=== PATIENT | male | born 2000 | race African-American/Black ===

== ENCOUNTER → 2023-08-07 | Emergency (ER) | payer OTHER ==
[~2023-08-07] MED LIST: AZITHROMYCIN 1 GM PACKET ONE; CEFTRIAXONE 1000 MG/VIAL ONE; KETOROLAC 30 MG/ML INJ ONE; NA CHLORIDE 0.9% 1,000 ML ONE
--- NOTE | 2023-08-07 11:01 | RAD REPORT ---
EXAM DESCRIPTION: CT - Stone Protocol - 08/07/2023 10:46 am CLINICAL HISTORY: Abdominal pain. COMPARISON: None. TECHNIQUE: Computed axial tomography of the abdomen pelvis was obtained without oral or IV contrast. Lack of IV and oral contrast limits evaluation of solid organs, appendix, bowel, and vessels. Romo l reformatted images were obtained and reviewed. All CT scans are performed using dose optimization technique as appropriate and may include automated exposure control or mA/KV adjustment according to patient size. FINDINGS: A renal calculus is not seen. An ureteral calculus is not noted. A bladder calculus is not present. No hydronephrosis Several images are degraded by artifact. The liver, spleen, pancreas and adrenals appear grossly normal There is no evidence of diverticulitis. IMPRESSION: Negative for a genitourinary calculus
[2023-08-07 11:34] LABS: Absolute Lymphocytes (CBC) 2.5 K/uL (0.7-4.9); Lymphocytes % 35.3 % (15.3-44.8); MCV 88.4 fL (80-100); Platelets 330 thou/uL (152-406); RBC Red Blood Cell Count 4.97 M/uL (4.33-5.43)
[2023-08-07 11:46] LABS: Specific Gravity 1.017 (1.005-1.030); Urine Bilirubin NEGATIVE (Negative); Urine Blood Negative (Negative); Urine Clarity Clear (Clear); Urine Color Light-Yellow (Yellow); Urine Glucose NEGATIVE (Negative); Urine Protein NEGATIVE (Negative); Urine Urobilinogen Normal (Normal); Urine pH 6.5 (5.0-7.0)
[2023-08-07 11:51] LABS: Albumin 4.1 g/dL (3.4-5.0); Bilirubin Total 0.6 mg/dL (0.2-1.0); Potassium 3.8 mEq/L (3.5-5.1); Protein, Total 8.3 g/dL (6.4-8.2)
--- NOTE | 2023-08-07 11:54 | RAD REPORT ---
EXAM DESCRIPTION: US - Scrotum Testicles - 08/07/2023 11:32 am CLINICAL HISTORY: Testicular pain COMPARISON: None FINDINGS: Right testicle measures 3.7 x 2.2 x 2.2 centimeters. Echotexture is homogeneous. Normal bl ood flow Left testicle measures 3 x 1.7 x 2 centimeters. Echotexture is homogeneous. Normal blood flow The epididymides are normal in size and echotexture. Normal blood flow is seen. IMPRESSION: No significant abnormalities displayed
--- NOTE | 2023-08-07 11:56 | ER ---
Nurse's Notes [facility] Name: Brenden Ratliff Age: 22 yrs Sex: Male : 2000 Arrival Date: 08/07/2023 Time: 10:22 Bed 15 Private MD: Diagnosis: Abdominal pain, unspecified-left testicular pain Presentation: 08/07 10:25 Chief complaint: Patient states: Pain in scrotum that started this morning. Coronavirus rs5 screen: At this time, the client does not indicate any symptoms associated with coronavirus-19. Ebola Screen: No symptoms or risks identified at this time. Initial Sepsis Screen: Does the patient meet any 2 criteria? No. Patient's initial sepsis screen is negative. Does the patient have a suspected source of infection? No. Patient's initial sepsis screen is negative. Risk Assessment: Do you want to hurt yourself or someone else? Patient reports no desire to harm self or others. Onset of symptoms was August 07, 2023. 10:25 Method Of Arrival: Law Enforcement: [place] [employer] rs5 10:25 Acuity: HERB 3 rs5 Historical: - Allergies: 10:27 No Known Allergies; rs5 - PMHx: 10:27 None; rs5 - PSHx: 10:27 None; rs5 - Immunization history:: Adult Immunizations up to date. - Social history:: Smoking status: Patient denies any tobacco usage or history of. Screenin:30 [facility] ED Fall Risk Assessment (Adult) History of falling in the last 3 months, rs5 including since admission No falls in past 3 months (0 pts) Confusion or Disorientation No (0 pts) Intoxicated or Sedated No (0 pts) Impaired Gait No (0 pts) Mobility Assist Device Used No (0 pt) Altered Elimination No (0 pt) Score/Fall Risk Level 0 - 2 = Low Risk Oriented to surroundings, Maintained a safe environment. Abuse screen: Denies threats or abuse. Nutritional screening: No deficits noted. Tuberculosis screening: No symptoms or risk factors identified. Assessment: 10:27 General: Appears in no apparent distress. comfortable, Behavior is calm, cooperative. rs5 Pain: Complains of pain in scrotumn Pain does not radiate. Pain currently is 5 out of 10 on a pain scale. Quality of pain is described as aching, Is continuous. Neuro: Level of Consciousness is awake, alert, obeys commands, Oriented to person, place, time, situation. Cardiovascular: Patient's skin is warm and dry. Rhythm is regular. Respiratory: Respiratory effort is even, unlabored, Respiratory pattern is regular, symmetrical. GI: Abdomen is round non-distended, Abd is soft and non tender X 4 quads. : Reports Scrotal pain: sudden onset no redness or swelling noted. EENT: No signs and/or symptoms were reported regarding the EENT system. Derm: Skin is intact, Skin is dry, Skin is normal, Skin temperature is warm. Musculoskeletal: Range of motion: intact in all extremities. 10:35 Reassessment: pt taken for CT scan. rs5 11:41 Reassessment: Patient and/or family updated on plan of care and expected duration. Pain rs5 level reassessed. Patient is alert, oriented x 3, equal unlabored respirations, skin warm/dry/pink. Patient denies pain at this time. Patient states feeling better. Patient states symptoms have improved. Vital Signs: 10:25 BP 135 / 82; Pulse 75; Resp 17; Temp 97.8; Pulse Ox 99% on R/A; rs5 12:01 BP 130 / 79; Pulse 77; Resp 18; Pulse Ox 99% on R/A; rs5 ED Course: 10:25 Patient arrived in ED. rs5 10:25 Jose Bucio MD is Attending Physician. cy 10:27 Triage completed. rs5 10:30 Bennett Goldstein, RN is Primary Nurse. rs5 10:30 Patient has correct armband on for positive identification. Bed in low position. Call rs5 light in reach. Side rails up X2. 10:30 No provider procedures requiring assistance completed. rs5 10:48 CT Stone Protocol In Process Unspecified. EDMS 11:33 US Scrotum Testicles In Process Unspecified. EDMS 11:55 Aston Vogel MD is Referral Physician. cy 12:10 IV discontinued, intact, bleeding controlled, No redness/swelling at site. Pressure rs5 dressing applied. Administered Medications: 10:35 Drug: Ketorolac IVP 30 mg IVP once Route: IVP; Site: left hand; rs5 11:01 Follow up: Response: No adverse reaction; Pain is decreased rs5 11:29 Drug: NS 0.9% IV 1000 ml IV at 1 bolus Per protocol; 1000 mL bolus Route: IV; Rate: 1 rs5 bolus; Site: left hand; 12:07 Follow up: Response: No adverse reaction rs5 11:29 Not Given (Patient Refused): fentanyl (pf)50 mcg IVP once rs5 11:29 Not Given (Patient Refused): ondansetron 4 mg IVP once; over 2 minutes rs5 11:50 Drug: AZITHromycin PO 1 grams PO once Route: PO; rs5 12:07 Follow up: Response: No adverse reaction rs5 11:50 Drug: Rocephin IV 1 grams IV at per protocol once; Given slow IV push per pharmacy rs5 instructions Route: IV; Rate: per protocol; Site: left hand; 12:07 Follow up: Response: No adverse reaction rs5 Medication: 10:35 VIS not applicable for this client. rs5 Outcome: 11:55 Discharge ordered by . cy 12:10 Discharged to home ambulatory, rs5 12:10 Condition: stable 12:10 Discharge instructions given to patient, Instructed on discharge instructions, follow up and referral plans. medication usage, Demonstrated understanding of instructions, follow-up care, medications, Prescriptions given X 2, 12:18 Patient left the ED. rs5 Signatures: Dispatcher [employer] EDJose Spaulding MD MD cha Sotelo, Ricky, RN RN rs5
--- NOTE | 2023-08-07 11:57 | EDPHYS ---
Physician Documentation [facility] Name: Brenden Ratliff Age: 22 yrs Sex: Male : 2000 Arrival Date: 08/07/2023 Time: 10:22 Bed 15 Private MD: ED Physician Jose Bucio HPI: 08/07 11:44 This 22 yrs old Black Male presents to ER via Law Enforcement with complaints of left cy testicle pain, left flank pain. Historical: - Allergies: 10: No Known Allergies; rs5 - PMHx: 10: None; rs5 - PSHx: 10: None; rs5 - Immunization history:: Adult Immunizations up to date. - Social history:: Smoking status: Patient denies any tobacco usage or history of. ROS: 11:45 Constitutional: Negative for fever, chills, and weight loss, Eyes: Negative for injury, cy pain, redness, and discharge, ENT: Negative for injury, pain, and discharge, Neck: Negative for injury, pain, and swelling, Cardiovascular: Negative for chest pain, palpitations, and edema, Respiratory: Negative for shortness of breath, cough, wheezing, and pleuritic chest pain, Abdomen/GI: Negative for abdominal pain, nausea, vomiting, diarrhea, and constipation, Back: Negative for injury and pain, MS/Extremity: Negative for injury and deformity, Skin: Negative for injury, rash, and discoloration, Neuro: Negative for headache, weakness, numbness, tingling, and seizure, Psych: Negative for depression, anxiety, suicide ideation, homicidal ideation, and hallucinations, Allergy/Immunology: Negative for hives, rash, and allergies, Endocrine: Negative for neck swelling, polydipsia, polyuria, polyphagia, and marked weight changes, Hematologic/Lymphatic: Negative for swollen nodes, abnormal bleeding, and unusual bruising, 11:45 : Positive for testicular pain of the left testicle, Exam: 11:45 Constitutional: This is a well developed, well nourished patient who is awake, alert, cy and in no acute distress. Head/Face: Normocephalic, atraumatic. Eyes: Pupils equal round and reactive to light, extra-ocular motions intact. Lids and lashes normal. Conjunctiva and sclera are non-icteric and not injected. Cornea within normal limits. Periorbital areas with no swelling, redness, or edema. ENT: Nares patent. No nasal discharge, no septal abnormalities noted. Tympanic membranes are normal and external auditory canals are clear. Oropharynx with no redness, swelling, or masses, exudates, or evidence of obstruction, uvula midline. Mucous membranes moist. Neck: Trachea midline, no thyromegaly or masses palpated, and no cervical lymphadenopathy. Supple, full range of motion without nuchal rigidity, or vertebral point tenderness. No Meningismus. Chest/axilla: Normal chest wall appearance and motion. Nontender with no deformity. No lesions are appreciated. Cardiovascular: Regular rate and rhythm with a normal S1 and S2. No gallops, murmurs, or rubs. Normal PMI, no JVD. No pulse deficits. Respiratory: Lungs have equal breath sounds bilaterally, clear to auscultation and percussion. No rales, rhonchi or wheezes noted. No increased work of breathing, no retractions or nasal flaring. Abdomen/GI: Soft, non-tender, with normal bowel sounds. No distension or tympany. No guarding or rebound. No evidence of tenderness throughout. Back: No spinal tenderness. No costovertebral tenderness. Full range of motion. Skin: Warm, dry with normal turgor. Normal color with no rashes, no lesions, and no evidence of cellulitis. MS/ Extremity: Pulses equal, no cyanosis. Neurovascular intact. Full, normal range of motion. Neuro: Awake and alert, GCS 15, oriented to person, place, time, and situation. Cranial nerves II-XII grossly intact. Motor strength 5/5 in all extremities. Sensory grossly intact. Cerebellar exam normal. Normal gait. Psych: Awake, alert, with orientation to person, place and time. Behavior, mood, and affect are within normal limits. 11:45 : CVA tenderness, on the left, Male external genitalia: normal, Circumcision noted. Bladder: is normal, Sexual behavior: the patient is not sexually active, Vital Signs: 10:25 BP 135 / 82; Pulse 75; Resp 17; Temp 97.8; Pulse Ox 99% on R/A; rs5 12:01 BP 130 / 79; Pulse 77; Resp 18; Pulse Ox 99% on R/A; rs5 MDM: 10:25 Patient medically screened. cy 11:47 Differential diagnosis: nonspecific abdominal pain, urinary retention, urethritis. Data [facility] reviewed: vital signs, nurses notes, EMS record, lab test result(s), radiologic studies, CT scan, ultrasound. Consideration of Admission/Observation Escalation of care including admission/observation considered. I considered the following discharge prescriptions or medication management in the emergency department Medications were administered in the Emergency Department. See MAR. Independent interpretation of the following test(s) in the Emergency Department CT Scan: My interpretation is ct stone, testicular usg. Test considered but Not performed: MRI: no mri done. Historians other than the Patient: EMS: ems well informed. Care significantly affected by the following chronic conditions: no trauma. 08/07 10:28 Order name: CBC with Diff; Complete Time: 11:43 [facility] 08/07 10:28 Order name: Comprehensive Metabolic Panel; Complete Time: 11:55 [facility] 08/07 10:28 Order name: Urinalysis w/ reflexes; Complete Time: 11:55 [facility] 08/07 10:28 Order name: US Scrotum Testicles; Complete Time: 11:55 [facility] 08/07 10:28 Order name: CT Stone Protocol; Complete Time: 11:43 [facility] Administered Medications: 10:35 Drug: Ketorolac IVP 30 mg IVP once Route: IVP; Site: left hand; rs5 11:01 Follow up: Response: No adverse reaction; Pain is decreased rs5 11:29 Drug: NS 0.9% IV 1000 ml IV at 1 bolus Per protocol; 1000 mL bolus Route: IV; Rate: 1 rs5 bolus; Site: left hand; 12:07 Follow up: Response: No adverse reaction rs5 11:29 Not Given (Patient Refused): fentanyl (pf)50 mcg IVP once rs5 11:29 Not Given (Patient Refused): ondansetron 4 mg IVP once; over 2 minutes rs5 11:50 Drug: AZITHromycin PO 1 grams PO once Route: PO; rs5 12:07 Follow up: Response: No adverse reaction rs5 11:50 Drug: Rocephin IV 1 grams IV at per protocol once; Given slow IV push per pharmacy rs5 instructions Route: IV; Rate: per protocol; Site: left hand; 12:07 Follow up: Response: No adverse reaction rs5 Disposition Summary: 08/07/23 11:55 Discharge Ordered Notes: Location: Home cy Problem: new cy Symptoms: have improved cy Condition: Stable cy Diagnosis - Abdominal pain, unspecified - left testicular pain cy Followup: cy - With: Private Physician - When: 2 - 3 days - Reason: Recheck today's complaints, Continuance of care, Re-evaluation by your physician Followup: cy - With: Aston Vogel MD - When: 2 - 3 days - Reason: Recheck today's complaints, Re-evaluation by your physician Discharge Instructions: - Discharge Summary Sheet cy - Abdominal Pain, Adult cy - Kidney Stones cy - Kidney Stones, [id number] Forms: - Medication Reconciliation Form [facility] - Thank You Letter [facility] - Antibiotic Education cy - Prescription Opioid Use cy - Patient Portal Instructions [facility] - Leadership Thank You Letter [facility] Prescriptions: - Ibuprofen 600 mg Oral Tablet - take 1 tablet ORAL route every 6 hours As needed take with food; 30 tablet; cy Refills: 0, Product Selection Permitted - Doxycycline Hyclate 100 mg Oral Tablet - take 1 tablet ORAL route every 12 hours; 20 tablet; Refills: 0, Product [facility] Selection Permitted Signatures: Dispatcher [employer] Jose Alexander MD MD cha Sotelo, Ricky, RN RN rs5
[2023-08-07 12:36] VITALS: BP 135/82; TEMP 97.8; O2SAT 99
== END ==
LOC: ER 10:22
DX: N50.812 Left testicular pain (principal); R10.9 Unspecified abdominal pain
CPT/HCPCS: 85025; 36415; 81003; 80053; 76377; 74176; 76870; 96375; 96374; 99284; J0696; J7030